=== PATIENT | female | born 1970 | race Caucasian/White ===

== ENCOUNTER 2024-01-13 06:21 | Day surgery (SDC) | payer OTHER ==
[2024-01-10 13:44] VITALS: BMI 21.4
[2024-01-13] MEDS ORDERED: BUPIVACAINE HCL/EPINEPHRINE/PF 30 ML VIAL IJ ONE (07:18)
[2024-01-13] MEDS ORDERED: GENTAMICIN SO4 80 MG/2 ML VIAL ONE (07:18)
[2024-01-13] MEDS ORDERED: VANCOMYCIN 1,000 MG VIAL (RESTRICTED TO ID ONLY) ONE (07:18)
[2024-01-13] MEDS ORDERED: EPINEPHrine/PF 1 MG/1 ML (1:1,000) AMPULE ONE (07:18)
[2024-01-13] MEDS ORDERED: ceFAZolin SODIUM 1 GM VIAL ONE ×2 (07:18→08:20)
[2024-01-13] MEDS ORDERED: SODIUM BICARBONATE 8.4% 50 MEQ/50 ML VIAL ONE (07:19)
[2024-01-13] MEDS ORDERED: LIDOCAINE 1%/EPI 1:100000 (20 ML MULTI DOSE VIAL) ONE (07:19)
[2024-01-13] MEDS ORDERED: LIDOCAINE HCL 2% (20ML MULTI-DOSE VIAL) ONE (07:19)
[2024-01-13] MEDS ORDERED: PROPOFOL 20 ML ONE (07:23)
[2024-01-13] MEDS ORDERED: MIDAZOLAM HCL 2 MG/2 ML SINGLE DOSE VIAL ONE (07:23)
[2024-01-13] MEDS ORDERED: SCOPOLAMINE HYDROBROMIDE 1 PATCH PATCH.TD72 ONE (07:30)
[2024-01-13] MEDS: BUPIVACAINE 0.25% /EPI 1:200,000 10 ML VIAL NR ONE (08:16)
[2024-01-13] MEDS ORDERED: KETOROLAC TROMETHAMINE 30 MG/1 ML VIAL ONE (08:20)
[2024-01-13] MEDS ORDERED: DEXAMETHASONE SOD PHOSPHATE 4 MG/1 ML VIAL ONE (08:20)
[2024-01-13] MEDS ORDERED: ONDANSETRON 4 MG/2 ML VIAL ONE (08:20)
[2024-01-13] MEDS ORDERED: oxyCODONE HCL 5 MG TABLET PO PRN (09:39)
[2024-01-13] MEDS: ACETAMINOPHEN 1000 MG/100 ML BAG IVPB ONE (09:40)
[2024-01-13] MEDS ORDERED: LACTATED RINGERS SOLUTION 1,000 ML IV SCH (09:45)
[2024-01-13] MEDS ORDERED: FENTANYL CITRATE/PF 50 MCG/ML VIAL ONE (09:48)
[2024-01-13] MEDS: PROMETHAZINE HCL 25 MG/1 ML VIAL IVPB PRN (10:20)
[2024-01-13] MEDS ORDERED: PROMETHAZINE HCL 25 MG/1 ML VIAL ONE (10:22)
[2024-01-13] MEDS ORDERED: oxyCODONE HCL 5 MG TABLET ONE (11:00)
[2024-01-13] MEDS: oxyCODONE HCL 5 MG TABLET PO ONE (11:00)
[2024-01-13 11:04] VITALS: RESP 16; TEMP 97.1
[2024-01-13 11:30] VITALS: BP 121/84; PULSE 82
== END 2024-01-13 12:25 | disposition home or self-care (01) ==
LOC: FASU 06:21
PROVIDERS: ATTEND Plastic Surgery
PROC: 0HRV37Z Replacement of Bilateral Breast with Autologous Tissue Substitute, Percutaneous Approach (ICD-10-PCS; principal; 2024-01-13 08:16)
PROC: 0HX5XZZ Transfer Chest Skin, External Approach (ICD-10-PCS; 2024-01-13 08:16)
PROC: 0HB7XZZ Excision of Abdomen Skin, External Approach (ICD-10-PCS; 2024-01-13 08:16)
DX: N85.3 Subinvolution of uterus (principal); Z90.13 Acquired absence of bilateral breasts and nipples; N65.0 Deformity of reconstructed breast
CPT/HCPCS: 88305-TC; 88342-TC; 94760; J0131